=== PATIENT | male | born 1945 | race Caucasian/White ===

== ENCOUNTER 2018-06-09 06:28 | Day surgery (SDC) | payer OTHER ==
[~2018-06-09] VITALS: Ht 172.7 cm; Wt 66.8 kg
[~2018-06-09 06:28] MED LIST: SODIUM CHLORIDE 0.9% 1,000 ML IV ONE
[2018-06-09] MEDS ORDERED: ALBUTEROL SULFATE 2.5 MG/0.5 ML NEB SOLUTION NEB ONE (06:29)
[2018-06-09] MEDS ORDERED: BENZOCAINE 20% 50 MCG/SPRAY 57 GM TP ONE (06:29)
[2018-06-09] MEDS ORDERED: LIDOCAINE 2% 30 ML JELLY TP ONE (06:29)
[2018-06-09] MEDS ORDERED: SODIUM CHLORIDE 0.9% 1,000 ML IV ONE (07:00)
[2018-06-09] MEDS ORDERED: ASPI81TA87 PO (07:30)
[2018-06-09] MEDS ORDERED: BUPR-93 PO (07:30)
[2018-06-09] MEDS ORDERED: BISO5TAB26 PO (07:30)
[2018-06-09] MEDS ORDERED: ATOR10TA84 PO (07:30)
[2018-06-09] MEDS ORDERED: MONT10TA21 PO (07:30)
[2018-06-09] MEDS ORDERED: FAMO20 PO (07:30)
[2018-06-09] MEDS ORDERED: CETI-290 PO (07:30)
[2018-06-09] MEDS ORDERED: DIPH25CA85 PO (07:30)
[2018-06-09] MEDS ORDERED: MIDAZOLAM HCL 2 MG/2 ML VIAL ONE (08:42)
[2018-06-09] MEDS ORDERED: FentaNYL CITRATE-PF 100 MCG/2 ML VIAL ONE (08:42)
[2018-06-09] MEDS ORDERED: MethylPREDNISolone SOD SUCC 125 MG/2 ML VIAL IVP ONE (09:00)
[2018-06-09] MEDS ORDERED: MethylPREDNISolone SOD SUCC 125 MG/2 ML VIAL ONE (09:29)
[2018-06-09] MEDS ORDERED: OXYGEN THERAPY IH SCH (20:00)
== END 2018-06-09 10:25 | disposition home or self-care (01) ==
LOC: SURGERY 06:28
PROVIDERS: ATTEND Internal Medicine Critical Care Medicine
DX: J38.4 Edema of larynx (principal); B37.0 Candidal stomatitis; J98.09 Other diseases of bronchus, not elsewhere classified; J45.998 Other asthma; I10 Essential (primary) hypertension; E78.00 Pure hypercholesterolemia, unspecified; K21.9 Gastro-esophageal reflux disease without esophagitis; F17.210 Nicotine dependence, cigarettes, uncomplicated; Z72.89 Other problems related to lifestyle; Z98.41 Cataract extraction status, right eye; Z98.42 Cataract extraction status, left eye; Z87.01 Personal history of pneumonia (recurrent); Z79.82 Long term (current) use of aspirin; Z79.01 Long term (current) use of anticoagulants; Z79.899 Other long term (current) drug therapy; Z98.890 Other specified postprocedural states
CPT/HCPCS: 31623; 31624; 71045; 87015; 87070; 87205; 87206; 87220; 88108; 88312; J2250; J2930; J3010; J7030